=== PATIENT | male | born 1945 | race Caucasian/White ===

== ENCOUNTER 2016-05-15 18:19 | Observation (INO) | payer MEDICARE, OTHER ==
--- NOTE | ~2016-05-15 | HP ---
History And Physical [address] [place]. [address] NAME: FORTINO MCCANN : 41 STATUS : ADM Valentino PAT#: [id number] AGE: 70 ADM/REG DATE : 05/15/16 MR#: [id number] REPORT SERV DATE: 05/16/16 DICTATED BY: LUISA GALVIN DATE: 05/16/16 REPORT STATUS : Draft TRANSCRIBED BY: MODL DATE: 05/16/16 DATE OF ADMISSION: 05/15/2016 PSYCHIATRIC ARNP: Fortino Sr M.D. CHIEF COMPLAINT: Chest pain and shortness of breath. HISTORY OF PRESENT ILLNESS: The patient reports having been recently breathless with exertion. He reports four days of episodic chest pain and some shortness of breath. He describes the chest pain as left-sided in nature that at times has radiated to his left arm. He states these symptoms are dissimilar to his 2011 cardiac event. He reports some associated shortness of breath, some diaphoresis and dizziness. Denies any nausea or belching. At its most intense, he rates the chest pain a 4/10. At time of interview in the [facility], he is pain free. He states the episodes lasts 2-3 minutes in duration, seem worse with exertion. Of note, the patient states that he recently lifted heavy lawnmower into the bed of his truck multiple times to work on it, but his discomfort is not reproducible on exam. The patient confirms a personal history of one heart attack in 2010. Denies history of stroke, DVT, or pulmonary embolus. The patient denies any recent fever or chills, no palpitations, no syncopal episodes. Denies PND or orthopnea. PAST MEDICAL HISTORY: 1. CAD. a. Status post AWMI with GURU to mid LAD, 05/2010. 2. Hypertension. 3. Dyslipidemia. 4. AODM. 5. GERD. 6. History of PACs. 7. History of nephrolithiasis. PAST SURGICAL HISTORY: Cholecystectomy and right great toe. SOCIAL HISTORY: He is with two children and previously employed in a [employer], now retired. Walks most days for approximately one hour, most recently 10 days ago. Denies tobacco, alcohol, or illicits. FAMILY HISTORY: Mother with an enlarged heart per report at the age of 70. REVIEW OF SYSTEMS: A 14-point review of systems performed, significant for HPI including home blood sugars of 90-120 and home blood pressure of 120/70. Otherwise, complete review of systems obtained and negative. ALLERGIES: NO KNOWN DRUG ALLERGIES. History And Physical [address] [place]. [address] NAME: FORTINO MCCANN : 41 STATUS : ADM Valentino PAT#: [id number] AGE: 70 ADM/REG DATE : 05/15/16 MR#: [id number] REPORT SERV DATE: 05/16/16 DICTATED BY: LUISA GALVIN DATE: 05/16/16 REPORT STATUS : Draft TRANSCRIBED BY: LISA DATE: 05/16/16 HOME MEDICATIONS: Tylenol p.r.n., aspirin 81 mg daily, Plavix 75 mg daily, Glucotrol adjusted dose 3 times daily, lisinopril 2.5 mg twice daily, nitroglycerin sublingual p.r.n., Protonix 40 mg daily as needed, sotalol 40 mg twice daily, and simvastatin 40 mg daily. PHYSICAL EXAMINATION: VITAL SIGNS: Blood pressure 107/58, pulse 70, respirations 17, temperature 97.7, O2 saturation 97% on room air. Height 5 feet 9 inches. Weight 191 pounds. BMI 28. GENERAL: Cooperative, in no apparent distress. HEENT: Pupils 2 mm, sclera nonicteric. Nares patent. Moist mucous membranes. No xanthelasma. NECK: Trachea midline, no thyromegaly. No JVD. No bruits. LYMPH: No cervical lymphadenopathy. No supraclavicular lymphadenopathy. RESPIRATORY: Unlabored respirations. Breath sounds clear bilaterally to posterior auscultation. No wheezes or rhonchi. CARDIOVASCULAR: Regular rate. No murmur, rub or gallop appreciated. Extremities without edema. Pulses 2+ bilaterally. ABDOMEN: Soft, nontender, nondistended, normal bowel sounds auscultated throughout. No organomegaly. SKIN: Warm, dry extremities. No pallor or cyanosis. PSYCHIATRIC: Appropriate affect. Alert, oriented x3. LABORATORY DATA: Troponin less than 0.02 twice. Potassium 4.2, BUN 14, creatinine 1.10, glucose 85, magnesium 1.9. WBC 8.1, hemoglobin 14.9, hematocrit 42.9, platelet count 169,000. EKG sinus rhythm. Echo, 2012: EF 61%. MPI, 03/2015: [place] stage 2, 8 minutes, 7 METs, no ischemia. PCI, 2010 (Dr. Cannon): GURU to mid LAD, EF 40%. CT of brain negative, head CT. 05/2015 carotids: Grade 1 bilaterally. ASSESSMENT AND PLAN: 1. Chest pain in a patient with multiple risk factors with reported exertional component. The patient has been observed in the [facility] overnight to rule out myocardial infarction with serial enzymes and serial EKGs and held n.p.o. We will proceed with MPI today. The patient will be discharged home if low risk, no ischemia. If anything suggestive of ischemia, Cardiology referral will be initiated. Otherwise, the patient will be asked to follow up with his PCP and Dr. Sr as appropriate. 2. Coronary artery disease. Continue home medications. 3. Hypertension. Monitor blood pressure and continue home medications. 4. Dyslipidemia. Continue statin. 5. 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 History And Physical [address] [address] NAME: FORTINO MCCANN : 41 STATUS : ADM Valentino PAT#: [id number] AGE: 70 ADM/REG DATE : 05/15/16 MR#: [id number] REPORT SERV DATE: 05/16/16 DICTATED BY: LUISA GALVIN DATE: 05/16/16 REPORT STATUS : Draft TRANSCRIBED BY: LISA DATE: 05/16/16 EVELIN/LISA MARTIN Mora, SEMICONDUCTOR DEVELOPMENT TECHNICIAN-BC / [id number] CC: Luisa Galvin, MARTIN, SEMICONDUCTOR DEVELOPMENT TECHNICIAN-BC Igor Alejandro MD [facility] Fortino Sr M.D.
[~2016-05-15 18:19] MED LIST: ASAB PO; BETAPACE80 PO; FLOMAX4 PO; HYDROCODONE PO; PLAVIX PO; PR25 PO; PRIN2.5 PO; ZOCOR40 PO
[2016-05-15 18:49] LABS: BASOPHILS 0.6 %; BASOPHILS ABSOLUTE 0.05 10/3/uL (0.0-0.16); EOSINOPHILS 4.9 %; ER CBC TAT 0 Hrs 05 Mins; HEMATOCRIT 42.9 % (40.0-51.0); HEMOGLOBIN 14.9 g/dL (13.6-17.8); IMMATURE GRANULOCYTES 0.1 %; IMMATURE GRANULOCYTES ABSOLUTE 0.01 10/3/uL (0.0-0.11); LYMPHOCYTES 40.2 %; LYMPHOCYTES ABSOLUTE 3.27 10/3/uL (0.67-4.30); MANUAL DIFF NO %; MEAN CORPUS HGB CONC 34.7 g/dL (32.0-36.0); MEAN CORPUSCULAR HEMOGLOB 32.4 pg (26.0-34.0); MEAN CORPUSCULAR VOLUME 93.3 fL (80-100); MEAN PLATELET VOLUME 11.2 fL (9.2-13.0); MONOCYTES 11.2 %; MONOCYTES ABSOLUTE 0.91 10/3/uL (0.21-1.20); NEUTROPHILS ABSOLUTE 3.49 10/3/uL (2.02-8.40); PLATELET COUNT 169 10/3/uL (150-400); RBC DISTRIBUTION WIDTH 12.7 % (12.0-16.0); WHITE BLOOD CELLS 8.1 10/3/uL (4.5-10.5)
[2016-05-15 18:58] LABS: PARTIAL THROMBO TIME 26.8 SEC (22.5-37.2); PROTIME (NOT ORD) 12.7 SEC (12.0-14.5)
[2016-05-15 19:06] LABS: BUN (BLOOD UREA NITROGEN) 14 MG/DL (6-23); CALCIUM, SERUM 9.1 MG/DL (8.5-10.4); CHEST PAIN PROFILE TAT 0 Hrs 22 Mins; CHLORIDE, SERUM 106 MMOL/L (96-112); CO2 (CARBON DIOXIDE) 30 MMOL/L (24-34); GFR AFRICAN AMERICAN 77 ML/MIN (>=60); GFR NON AFRICAN AMERICAN 67 ML/MIN (>=60); GLUCOSE, SERUM 85 MG/DL (60-99); POTASSIUM, SERUM 4.2 MMOL/L (3.5-5.3); SODIUM, SERUM 142 MMOL/L (135-148); TROPONIN I <0.02 NG/ML (<0.05)
[2016-05-15] MEDS ORDERED: PLAVIX PO (21:08)
[2016-05-15] MEDS ORDERED: BETAPACE80 PO (21:09)
[2016-05-15] MEDS ORDERED: ASAB PO (21:09)
[2016-05-15] MEDS ORDERED: PROTONIX PO (21:09)
[2016-05-15] MEDS ORDERED: PRIN2.5 PO (21:09)
[2016-05-15] MEDS ORDERED: GLUCOTROL5 PO (21:10)
[2016-05-15] MEDS ORDERED: NITROSTAT0.4 MG SL (21:12)
[2016-05-15] MEDS ORDERED: ACET500CAP PO (21:12)
== END 2016-05-16 15:17 | disposition home or self-care (01) ==
LOC: ER 18:19 → CDU1 23:14 → CDU2 23:52
PROVIDERS: Emergency Medicine
DX: R07.9 Chest pain, unspecified (principal); I25.10 Atherosclerotic heart disease of native coronary artery without angina pectoris; I10 Essential (primary) hypertension; E78.5 Hyperlipidemia, unspecified; K21.9 Gastro-esophageal reflux disease without esophagitis; E78.00 Pure hypercholesterolemia, unspecified; E11.8 Type 2 diabetes mellitus with unspecified complications; Z87.442 Personal history of urinary calculi; Z90.49 Acquired absence of other specified parts of digestive tract; Z98.890 Other specified postprocedural states; Z82.49 Family history of ischemic heart disease and other diseases of the circulatory system; Z79.82 Long term (current) use of aspirin; Z79.02 Long term (current) use of antithrombotics/antiplatelets; Z79.899 Other long term (current) drug therapy
CPT/HCPCS: 70450; 71010; 78452; 80048; 82962; 83735; 84484; 85025; 85610; 85730; 93005; 93017; 99285; A9270-GY; A9502; G0378